=== PATIENT | female | born 1980 | race Two or more races ===

== ENCOUNTER 2017-02-27 16:49 | Emergency (ER) | payer OTHER ==
[~2017-02-27] VITALS: Ht 152.4 cm; Wt 52.2 kg
[~2017-02-27 16:49] MED LIST: AMOXICILLIN PO
[2017-02-27 17:09] LABS: URINE SOURCE CLEAN CATCH
[2017-02-27 17:28] LABS: URINE APPEARANCE CLEAR; URINE BILIRUBIN NEG (NEG); URINE BLOOD NEG (NEG); URINE COLOR YELLOW; URINE GLUCOSE NEG (NEG); URINE KETONE NEG (NEG); URINE LEUKOCYTE ESTERASE NEG (NEG); URINE NITRATE NEG (NEG); URINE PH 6.5 (5-8); URINE PROTEIN NEG (NEG); URINE SPECIFIC GRAVITY 1.004 (1.003-1.035); URINE UROBILINOGEN 0.2 MG/DL (NEG)
[2017-02-27 17:49] LABS: CULTURE INDICATED? NO
== END 2017-02-27 20:15 | disposition home or self-care (01) ==
LOC: CFTX 16:49 → CED 16:49 → CFTX 19:22
DX: S39.012A Strain of muscle, fascia and tendon of lower back, initial encounter (principal); Z98.51 Tubal ligation status; F17.210 Nicotine dependence, cigarettes, uncomplicated; X50.9XXA Other and unspecified overexertion or strenuous movements or postures, initial encounter
CPT/HCPCS: 81003; 84703; 96372; 99283; J1885